=== PATIENT | male | born 1995 | race Caucasian/White ===

== ENCOUNTER 2016-04-15 15:35 | Emergency (ER) | payer SELFPAY ==
--- NOTE | 2016-04-15 16:12 | RAD ---
ADDENDUM #1 Additional review was requested. There is possible slight irregularity involving the trapezoid/trapezium. No abnormality of the trapezoid is seen on the oblique view. However several lucencies are noted on the AP projection. The trapezoid is also not well-defined on this exam. And there is a question of a dorsal cortical irregularity on the lateral projection. In addition to the radial and ulnar fractures. There are changes which raise a question of possible carpal bone fractures. If further evaluation is deemed necessary, CT scan may be helpful. ORIGINAL REPORT EXAMINATION:WRIST- RIGHT 3 VIEWS CLINICAL INDICATION: No boarding injury. Right wrist pain. COMPARISON: None FINDINGS: There is a transverse fracture closely approximating the growth plate of the distal right radius. Slight impaction and dorsal buckle deformity is noted with slight ventral apex angulation. There is also a transverse fracture of the ulnar styloid process. The carpal bones appear intact. The radiocarpal and intercarpal joint space relationships of the right wrist are maintained. No soft tissue abnormality is identified. IMPRESSION: Fractures of the distal radius and ulna as described. Fracture of the distal right radius closely approximates the growth plate.
[2016-04-15] MEDS ORDERED: ACETAMINOPHEN 500 MG TABLET ONE (16:34)
[2016-04-15] MEDS ORDERED: IBUPROFEN 600 MG TABLET ONE (16:34)
== END 2016-04-15 16:44 | disposition home or self-care (01) ==
LOC: ED 15:35
DX: S52.501A Unspecified fracture of the lower end of right radius, initial encounter for closed fracture (principal); W19.XXXA Unspecified fall, initial encounter; Y93.23 Activity, snow (alpine) (downhill) skiing, snowboarding, sledding, tobogganing and snow tubing; Y92.39 Other specified sports and athletic area as the place of occurrence of the external cause
CPT/HCPCS: 73110; 99283; 29125; 99284; A9270 ×2